=== PATIENT | female | born 1990 | race Caucasian/White ===

== ENCOUNTER 2019-02-28 10:32 | Inpatient (IN) ==
[2019-02-28 10:38] VITALS: BMI 61.0
[2019-02-28] MEDS ORDERED: CATAPRES TAB 0.2 MG PO ONE (11:21)
--- NOTE | 2019-02-28 11:21 | DR.CP ---
HPI Time Seen Time Seen by Provider: 02/28/19 10:50 PCP Primary Care Physician: BRIDGER SHAFER Complaint Chief Complaint:: PT. C/O CHEST PAIN, HIGH BLOOD PRESSURE, NECK AND BACK PAIN, FATIGUE, HEADACHE AND SOB. ONSET OF THURSDAY. 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 Past Surgical History Comment: TUBAL LIGATION Family History History of Family Medical Conditions: Yes Family Medical History: Diabetes Mellitus and Coronary Artery Disease Social History Does patient currently use any type of tobacco product: No Have you used tobacco products in the last 12 months: No Type of Tobacco Use: None Does any household member use tobacco: No Alcohol Use: None Do you use any recreational Drugs:: No Lives With: Spouse Lives Where: Home infectious screening In the last 2 months have you had wt loss of >10#?: NO Have you had fever, night sweats or hemotysis?: No Have you traveled outside the country in the last 6 months?: No Isolation: Standard ROS Review of Systems Constitutional: No Symptoms Reported Eyes: No Symptoms Reported ENTM: No Symptoms Reported Respiratoy: No Symptoms Reported Cardiovascular: No Symptoms Reported Gastrointestinal/Abdominal: No Symptoms Reported Genitourinary: No Symptoms Reported Neurological: No Symptoms Reported Musculoskeletal: No Symptoms Reported Integumentary: No Symptoms Reported Hematologic/Lymphatic: No Symptoms Reported Endocrine: No Symptoms Reported Psychiatric: No Symptoms Reported All Other Systems: Reviewed and Negative PE Vitals Vitals: Temperature 97.9 F Pulse Rate [Apical] 100 Pulse Rate 87 Respiratory Rate 26 Blood Pressure [Left Arm] 219/122 Blood Pressure 212/92 O2 Sat by Pulse Oximetry 96 General Limitations: No Limitations General Appearance: Alert and In No Apparent Distress Head Head Exam: Normal Inspection Eyes Eye exam: Normal Appearance ENT ENT Exam: Normal Exam Chest Chest Inspection: Normal Inspection Respiratory Respiratory Exam: Normal Lung Sounds Bilat Cardiovascular Cardiovascular Exam: Regular Rate and Normal Rhythm Pulse: Normal Edema: Normal Abdominal Exam Abdominal Exam: Normal Inspection, Normal Bowel Sounds and Soft Extremities Extremities Exam: Normal Inspection Back Back Exam: Normal Inspection Neurologic Neurological Exam: Alert and Oriented X3 Psychiatric Psychiatric Exam: Normal Affect and Normal Mood Skin Skin Exam: Warm, Dry, Intact and Normal Color ROR Labs Reviewed Laboratory Results Reviewed?: Yes Result Diagrams: 03/01/19 04:00 03/01/19 04:00 Laboratory: WBC 12.5 X10^3/uL (3.6-10.0) H 02/28/19 11:32 RBC 4.63 X10^6/uL (3.5-5.4) 02/28/19 11:32 Hgb 9.9 g/dL (12.0-16.0) L 02/28/19 11:32 Hct 32.1 % (36.0-47.0) L 02/28/19 11:32 MCV 69.3 fL (80.0-100.0) L 02/28/19 11:32 MCH 21.3 pg (27.0-34.0) L 02/28/19 11:32 MCHC 30.8 g/dL (33.0-35.0) L 02/28/19 11:32 RDW 19.2 % (11.6-16.5) H 02/28/19 11:32 Plt Count 385 X10^3/uL (150.0-450.0) 02/28/19 11:32 Plt Count Comment Adequate (ADEQUATE) 02/28/19 11:32 MPV 7.5 fL (7.4-11.0) 02/28/19 11:32 Neut % (Auto) 74.0 % (42.0-75.0) 02/28/19 11:32 Lymph % (Auto) 19.0 % (21.0-51.0) L 02/28/19 11:32 [place] % (Auto) 4.1 % (0.0-13.0) 02/28/19 11:32 Eos % (Auto) 2.1 % (0.9-2.9) 02/28/19 11:32 Baso % (Auto) 0.8 % (0.2-1.0) 02/28/19 11:32 Neut # (Auto) 9.2 x10^3/uL (2.2-4.8) H 02/28/19 11:32 Lymph # (Auto) 2.4 X10^3/uL (1.3-2.9) 02/28/19 11:32 [place] # (Auto) 0.5 x10^3/uL (0.3-0.8) 02/28/19 11:32 Eos # (Auto) 0.3 x10^3/uL (0.0-0.2) H 02/28/19 11:32 Baso # (Auto) 0.1 X10^3/uL (0.0-0.1) 02/28/19 11:32 Absolute Nucleated RBC 0.0 /100WBC 02/28/19 11:32 Plt Morphology Comment Normal (NORMAL) 02/28/19 11:32 RBC Morphology Abnormal (NORMAL) A 02/28/19 11:32 Hypochromasia 2+ A 02/28/19 11:32 Microcytosis 1+ A 02/28/19 11:32 D-Dimer 175 ng/mL (0-400) 02/28/19 11:32 Sodium 140 mmol/L (136-145) 02/28/19 11:32 Corrected Sodium TNP 02/28/19 11:32 Potassium 4.1 mmol/L (3.5-5.1) 02/28/19 11:32 Chloride 103 mmol/L (98-107) 02/28/19 11:32 Carbon Dioxide 29.8 mmol/L (21-32) 02/28/19 11:32 BUN 9 mg/dL (7-18) 02/28/19 11:32 Creatinine 0.95 mg/dL (0.55-1.02) 02/28/19 11:32 Est GFR (MDRD) Af Amer > 60 (>60) 02/28/19 11:32 Est GFR (MDRD) Non-Af > 60 (>60) 02/28/19 11:32 Glucose 87 mg/dL (65-99) 02/28/19 11:32 Calcium 8.7 mg/dL (8.5-10.1) 02/28/19 11:32 Corrected Calcium 9.6 mg/dL (8.5-10.1) 02/28/19 11:32 Total Bilirubin 0.30 mg/dL (0.2-1.0) 02/28/19 11:32 AST 13 Units/L (15-37) L 02/28/19 11:32 ALT 21 Units/L (12-78) 02/28/19 11:32 Alkaline Phosphatase 90 Units/L (46-116) 02/28/19 11:32 Creatine Kinase 40 Units/L (26-192) 02/28/19 13:55 CK-MB (CK-2) 1.0 ng/mL (0-4.0) 02/28/19 13:55 CK/CKMB % Calc 2.5 % (<4) 02/28/19 13:55 Troponin I 0.06 ng/mL (0-1.5) 02/28/19 13:55 B-Natriuretic Peptide 37.4 pg/mL (0-79) 02/28/19 11:32 Total Protein 7.1 g/dL (6.4-8.2) 02/28/19 11:32 Albumin 2.9 g/dL (3.4-5.0) L 02/28/19 11:32 Globulin 4.2 g/dL (2.5-4.5) 02/28/19 11:32 Albumin/Globulin Ratio 0.7 Ratio (1.1-2.1) L 02/28/19 11:32 Specimen Type Clean catch urine 02/28/19 14:01 Urine Color Yellow (YELLOW) 02/28/19 14:01 Urine Appearance Clear (CLEAR) 02/28/19 14:01 Urine pH 6.0 (5.0 - 8.0) 02/28/19 14:01 Ur Specific [place] 1.015 (1.000-1.030) 02/28/19 14:01 Urine Protein 1+ (NEGATIVE) 02/28/19 14:01 Urine Glucose (UA) Negative (NEGATIVE) 02/28/19 14:01 Urine Ketones Negative (NEGATIVE) 02/28/19 14:01 Urine Occult Blood Negative (NEGATIVE) 02/28/19 14:01 Urine Nitrite Negative (NEGATIVE) 02/28/19 14:01 Urine Bilirubin Negative (NEGATIVE) 02/28/19 14:01 Urine Urobilinogen Normal (NORMAL) 02/28/19 14:01 Ur Leukocyte Esterase Negative (NEGATIVE) 02/28/19 14:01 Urine RBC 3-5 /HPF (0-3) A 02/28/19 14:01 Urine WBC None seen /HPF (0-5) 02/28/19 14:01 Ur Squamous Epith Cells Many /HPF (NEGATIVE) 02/28/19 14:01 Amorphous Sediment Trace /HPF (NEGATIVE) 02/28/19 14:01 Urine Bacteria Trace /HPF (NEGATIVE) 02/28/19 14:01 Ur Culture Indicated? No/not indicated 02/28/19 14:01 Opioid Opioid Risk Tool Age (Adam box if 16-45): Yes History of Preadolescent Sexual Abuse: No Total: 1 Total Score Risk Category: Low Risk Copyright: Grover REYES predicting aberrant behaviors Diagnosis Discharge Problem: Hypertensive urgency, Abnormal cardiac enzyme level, Headache Instructions Forms: Excuse From Work Patient Portal
[2019-02-28] MEDS ORDERED: CATAPRES TAB 0.2 MG ONE (11:34)
[2019-02-28 11:44] LABS: BASOPHILS # (AUTO) 0.1 X10^3/uL (0.0-0.1); BASOPHILS % (AUTO) 0.8 % (0.2-1.0); EOSINOPHILS # (AUTO) 0.3 x10^3/uL (0.0-0.2); EOSINOPHILS % (AUTO) 2.1 % (0.9-2.9); HEMATOCRIT 32.1 % (36.0-47.0); HEMOGLOBIN 9.9 g/dL (12.0-16.0); LYMPHOCYTES # (AUTO) 2.4 X10^3/uL (1.3-2.9); MEAN CORPUSCULAR HEMOGLOBIN 21.3 pg (27.0-34.0); MEAN CORPUSCULAR HGB CONC 30.8 g/dL (33.0-35.0); MEAN CORPUSCULAR VOLUME 69.3 fL (80.0-100.0); MEAN PLATELET VOLUME 7.5 fL (7.4-11.0); MONOCYTES # (AUTO) 0.5 x10^3/uL (0.3-0.8); MONOCYTES % (AUTO) 4.1 % (0.0-13.0); NEUTROPHILS # (AUTO) 9.2 x10^3/uL (2.2-4.8); PLATELET COUNT 385 X10^3/uL (150.0-450.0); RED BLOOD COUNT 4.63 X10^6/uL (3.5-5.4); RED CELL DISTRIBUTION WIDTH 19.2 % (11.6-16.5); WHITE BLOOD COUNT 12.5 X10^3/uL (3.6-10.0)
[2019-02-28 12:01] LABS: ALANINE AMINOTRANSFERASE 21 Units/L (12-78); ALBUMIN 2.9 g/dL (3.4-5.0); ALKALINE PHOSPHATASE 90 Units/L (46-116); ASPARTATE AMINO TRANSFERASE 13 Units/L (15-37); BLOOD UREA NITROGEN 9 mg/dL (7-18); CALCIUM 8.7 mg/dL (8.5-10.1); CARBON DIOXIDE 29.8 mmol/L (21-32); CHLORIDE 103 mmol/L (98-107); CKMB % 2.3 % (<4); COR CA(FOR HYPOALB) 9.6 mg/dL (8.5-10.1); CREATINE KINASE 44 Units/L (26-192); CREATININE 0.95 mg/dL (0.55-1.02); SODIUM 140 mmol/L (136-145); TOTAL PROTEIN 7.1 g/dL (6.4-8.2); eGFR NON BLACK RACES > 60 (>60)
[2019-02-28 12:05] LABS: HYPOCHROMASIA 2+; PLATELET MORPHOLOGY COMMENT NORMAL (NORMAL)
[2019-02-28 12:06] LABS: MICROCYTOSIS 1+
[2019-02-28 12:23] LABS: TROPONIN I 0.06 ng/mL (0-1.5)
--- NOTE | 2019-02-28 13:31 | RAD ---
HISTORY: 28-year-old female with chest pain and shortness of breath. Study: Frontal view of the chest. Comparison: Chest radiographs 09/21/2012 Findings: The trachea is midline. The cardiac silhouette is unremarkable. The lungs are clear without focal consolidation, effusion or pneumothorax. Soft tissues are unremarkable. Osseous structures are unremarkable. IMPRESSION: 1. No acute cardiopulmonary disease. Reported By:
[2019-02-28 14:15] LABS: BILIRUBIN,URINE NEGATIVE (NEGATIVE); BLOOD/HEMOGLOBIN,URINE NEGATIVE (NEGATIVE); GLUCOSE, URINE NEGATIVE (NEGATIVE); KETONES,URINE NEGATIVE (NEGATIVE); LEUKOCYTE ESTERASE ,URINE NEGATIVE (NEGATIVE); NITRITES,URINE NEGATIVE (NEGATIVE); PROTEIN,URINE 1+ (NEGATIVE); UROBILINOGEN,URINE NORMAL (NORMAL)
[2019-02-28 14:20] LABS: AMORPHOUS SEDIMENT,UR TRACE /HPF (NEGATIVE); APPEARANCE,URINE CLEAR (CLEAR); BACTERIA,URINE TRACE /HPF (NEGATIVE); COLOR,URINE YELLOW (YELLOW); SQUAMOUS EPITHELIAL CELL,UR MANY /HPF (NEGATIVE)
[2019-02-28 14:21] LABS: CKMB % 2.5 % (<4); TROPONIN I 0.06 ng/mL (0-1.5)
[2019-02-28] MEDS ORDERED: NORMODYNE INJ 100 MG VIAL IVP ONE (15:35)
[2019-02-28] MEDS ORDERED: NORMODYNE INJ 100 MG VIAL 250 MG in NS 250 ML IV 200 ML IV PRN (15:35)
[2019-02-28] MEDS ORDERED: NORMODYNE INJ 100 MG VIAL ONE ×3 (16:08→16:20)
[2019-02-28] MEDS ORDERED: NS 250 ML IV 250 ML IV ONE (16:12)
[2019-02-28] MEDS ORDERED: APRESOLINE INJ 20 MG VIAL IVP ONE (17:56)
[2019-02-28] MEDS ORDERED: NS 100 ML IV 100 ML IV ONE (17:58)
[2019-02-28] MEDS ORDERED: TORADOL 30 MG VIAL IVP PRN (18:43)
[2019-02-28 20:36] LABS: CKMB % 2.7 % (<4); CREATINE KINASE 37 Units/L (26-192); CREATINE KINASE MB < 1.0 ng/mL (0-4.0); TROPONIN I 0.04 ng/mL (0-1.5)
[2019-02-28] MEDS ORDERED: NITROSTAT SL PRN (20:46)
--- NOTE | 2019-02-28 21:08 | DR.H&P ---
H&P History & Physical for Day of: H&P Date: 02/28/19 Chief Complaint Chief Complaint: Chest pain Allergies Allergies Allergy/AdvReac Type Severity Reaction Status Date / Time amoxicillin Allergy Verified 02/28/19 10:39 Penicillins Allergy Verified 02/28/19 10:39 Sulfa (Sulfonamide Allergy Verified 02/28/19 10:39 Antibiotics) [SULFA] History of Present Illness History of Present Illness: Pt is a 28 yo f w/ no significant past medical history presenting w/ chest pain. She reports sx started on Thursday when she was outside and became short of breath on exertion. She reports having to rest but had continued intermittent episodes of chest tightness and substernal pain that would radiate to her back, neck, and down her left arm w/ associated headache and diaphoresis. She reports symptoms occur both while resting and with exertion. She reports not being able to sleep d/t shortness of breath. The patient's aunt visited her and checked her blood pressure at home that was greater than 200 systolic. She advised her to see her pcp who then sent her to the ED. Pt has also been under a lot of stress over the past month d/t her mother dying from an overdose. Denies fever, chills, nausea, vomiting, abdominal pain, diarrhea, constipation, numbness, weakness, edema. 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 Family History Family Medical History: Diabetes Mellitus and Coronary Artery Disease Social History Does patient currently use any type of tobacco product: No Have you used tobacco products in the last 12 months: No Type of Tobacco Use: None Does any household member use tobacco: No Alcohol Use: None Drug Use: None Medications Home Medications: amoxicillin Allergy (Verified 02/28/19 10:39) Penicillins Allergy (Verified 02/28/19 10:39) Sulfa (Sulfonamide Antibiotics) [SULFA] Allergy (Verified 02/28/19 10:39) Labs Result Diagrams: 02/28/19 11:32 02/28/19 11:32 Labs: Laboratory WBC 12.5 X10^3/uL (3.6-10.0) H 02/28/19 11:32 RBC 4.63 X10^6/uL (3.5-5.4) 02/28/19 11:32 Hgb 9.9 g/dL (12.0-16.0) L 02/28/19 11:32 Hct 32.1 % (36.0-47.0) L 02/28/19 11:32 MCV 69.3 fL (80.0-100.0) L 02/28/19 11:32 MCH 21.3 pg (27.0-34.0) L 02/28/19 11:32 MCHC 30.8 g/dL (33.0-35.0) L 02/28/19 11:32 RDW 19.2 % (11.6-16.5) H 02/28/19 11:32 Plt Count 385 X10^3/uL (150.0-450.0) 02/28/19 11:32 Plt Count Comment Adequate (ADEQUATE) 02/28/19 11:32 MPV 7.5 fL (7.4-11.0) 02/28/19 11:32 Neut % (Auto) 74.0 % (42.0-75.0) 02/28/19 11:32 Lymph % (Auto) 19.0 % (21.0-51.0) L 02/28/19 11:32 [place] % (Auto) 4.1 % (0.0-13.0) 02/28/19 11:32 Eos % (Auto) 2.1 % (0.9-2.9) 02/28/19 11:32 Baso % (Auto) 0.8 % (0.2-1.0) 02/28/19 11:32 Neut # (Auto) 9.2 x10^3/uL (2.2-4.8) H 02/28/19 11:32 Lymph # (Auto) 2.4 X10^3/uL (1.3-2.9) 02/28/19 11:32 [place] # (Auto) 0.5 x10^3/uL (0.3-0.8) 02/28/19 11:32 Eos # (Auto) 0.3 x10^3/uL (0.0-0.2) H 02/28/19 11:32 Baso # (Auto) 0.1 X10^3/uL (0.0-0.1) 02/28/19 11:32 Absolute Nucleated RBC 0.0 /100WBC 02/28/19 11:32 Plt Morphology Comment Normal (NORMAL) 02/28/19 11:32 RBC Morphology Abnormal (NORMAL) A 02/28/19 11:32 Hypochromasia 2+ A 02/28/19 11:32 Microcytosis 1+ A 02/28/19 11:32 D-Dimer 175 ng/mL (0-400) 02/28/19 11:32 Sodium 140 mmol/L (136-145) 02/28/19 11:32 Corrected Sodium TNP 02/28/19 11:32 Potassium 4.1 mmol/L (3.5-5.1) 02/28/19 11:32 Chloride 103 mmol/L (98-107) 02/28/19 11:32 Carbon Dioxide 29.8 mmol/L (21-32) 02/28/19 11:32 BUN 9 mg/dL (7-18) 02/28/19 11:32 Creatinine 0.95 mg/dL (0.55-1.02) 02/28/19 11:32 Est GFR (MDRD) Af Amer > 60 (>60) 02/28/19 11:32 Est GFR (MDRD) Non-Af > 60 (>60) 02/28/19 11:32 Glucose 87 mg/dL (65-99) 02/28/19 11:32 Calcium 8.7 mg/dL (8.5-10.1) 02/28/19 11:32 Corrected Calcium 9.6 mg/dL (8.5-10.1) 02/28/19 11:32 Total Bilirubin 0.30 mg/dL (0.2-1.0) 02/28/19 11:32 AST 13 Units/L (15-37) L 02/28/19 11:32 ALT 21 Units/L (12-78) 02/28/19 11:32 Alkaline Phosphatase 90 Units/L (46-116) 02/28/19 11:32 Creatine Kinase 37 Units/L (26-192) 02/28/19 20:07 CK-MB (CK-2) < 1.0 ng/mL (0-4.0) 02/28/19 20:07 CK/CKMB % Calc 2.7 % (<4) 02/28/19 20:07 Troponin I 0.04 ng/mL (0-1.5) 02/28/19 20:07 B-Natriuretic Peptide 37.4 pg/mL (0-79) 02/28/19 11:32 Total Protein 7.1 g/dL (6.4-8.2) 02/28/19 11:32 Albumin 2.9 g/dL (3.4-5.0) L 02/28/19 11:32 Globulin 4.2 g/dL (2.5-4.5) 02/28/19 11:32 Albumin/Globulin Ratio 0.7 Ratio (1.1-2.1) L 02/28/19 11:32 Specimen Type Clean catch urine 02/28/19 14:01 Urine Color Yellow (YELLOW) 02/28/19 14:01 Urine Appearance Clear (CLEAR) 02/28/19 14:01 Urine pH 6.0 (5.0 - 8.0) 02/28/19 14:01 Ur Specific [place] 1.015 (1.000-1.030) 02/28/19 14:01 Urine Protein 1+ (NEGATIVE) 02/28/19 14:01 Urine Glucose (UA) Negative (NEGATIVE) 02/28/19 14:01 Urine Ketones Negative (NEGATIVE) 02/28/19 14:01 Urine Occult Blood Negative (NEGATIVE) 02/28/19 14:01 Urine Nitrite Negative (NEGATIVE) 02/28/19 14:01 Urine Bilirubin Negative (NEGATIVE) 02/28/19 14:01 Urine Urobilinogen Normal (NORMAL) 02/28/19 14:01 Ur Leukocyte Esterase Negative (NEGATIVE) 02/28/19 14:01 Urine RBC 3-5 /HPF (0-3) A 02/28/19 14:01 Urine WBC None seen /HPF (0-5) 02/28/19 14:01 Ur Squamous Epith Cells Many /HPF (NEGATIVE) 02/28/19 14:01 Amorphous Sediment Trace /HPF (NEGATIVE) 02/28/19 14:01 Urine Bacteria Trace /HPF (NEGATIVE) 02/28/19 14:01 Ur Culture Indicated? No/not indicated 02/28/19 14:01 Review of Systems Constitutional: Sweats; denies Fever, Chills and Weakness Eyes: No Symptoms Reported ENT: No Symptoms Reported Respiratory: Cough, Shortness of Breath and SOB with Excertion; denies Wheezing Cardiovascular: Chest Pain and Orthopnea; denies Palpitations and Edema Gastrointestinal: No Symptoms Reported Genitourinary: No Symptoms Reported Musculoskeletal: No Symptoms Reported Skin: No Symptoms Reported Neurological: No Symptoms Reported Physical Exam Vital Signs: Temperature 97.8 F Pulse Rate [Apical] 100 Pulse Rate 90 Respiratory Rate 29 Blood Pressure [Left Arm] 219/122 Blood Pressure 153/90 O2 Sat by Pulse Oximetry 98 Oriented: Normal Eyes: Normal Ear: Normal Nose: Normal Respiratory: Clear Throughout Cardiovascular: Normal : Normal Auscultation: Bowel Sounds: Normal Palpation: Normal Tenderness: Normal Skin: Normal Musculoskeletal: Normal Psychiatric: Normal Mood Description: Calm Speech Pattern: Clear Assessment/Plan (1) Abnormal cardiac enzyme level: Status: Acute Plan: Pt on telemetry. Slightly abnormal Troponin 0.06>0.06>0.04, will trend. Initial Ekg non-specific changes, repeat possible evolving coronary changes, will f/u w/ ekg in AM. Concerning history of symptoms w/ no previous episodes or events in a pt with no prior cardiopulmonary history. BNP, CXR, D- dimer negative, however HEART score 5. Will order CTA of chest to rule out dissection or pulmonary embolus although low probability. May need Echo to evaluate for any wall motion abnormalities. Pt does not regularly follow w/ pcp, differentials of uncontrolled hypertension and social stress as possible etio logy. Unable to rule out unstable angina at this time. Will start heparin infusion, continue to monitor and determine plan of care based on clinical course. (2) Hypertensive urgency: Status: Acute Plan: No pre-existing diagnosis of hypertension. Blood pressure control, received clonidine in ED. IV labetalol prn. Order hypertension labs. Continue to monitor. (3) Anemia: Qualifiers: Anemia type: unspecified type Qualified Code(s): D64.9 - Anemia, unspecified Status: Acute
[2019-02-28] MEDS: ASPIRIN EC 81 MG PO SCH (21:55)
[2019-02-28] MEDS ORDERED: HEPARIN SODIUM IN D5W 25,000 UNITS/500 ML BAG IV PRN (22:37)
--- NOTE | 2019-03-01 00:50 | CT ---
CTA chest Indication: Chest pain Comparison: None Technique: CT images of the chest were obtained with contrast. Automatic exposure control was utilized. MIP images provided. Findings: The upper abdomen is grossly unremarkable. No acute osseous abnormality. Normal heart size, without pericardial thickening or pericardial effusion. No pathologically enlarged intrathoracic lymph nodes are identified. Evaluation of the pulmonary arteries is markedly limited by poor contrast bolus timing and beam hardening artifact related to patient body habitus. Accounting for this, no central pulmonary arterial filling defect is identified. The thoracic aorta is grossly unremarkable for technique. The lungs are clear. No pleural effusion or pneumothorax. The major airways are patent. Impression: Severely limited angiographic study as above, without central pulmonary embolus. No acute cardiopulmonary abnormality. Reported By:
[2019-03-01 02:09] LABS: CKMB % 2.6 % (<4); CREATINE KINASE 39 Units/L (26-192); CREATINE KINASE MB < 1.0 ng/mL (0-4.0); TROPONIN I 0.04 ng/mL (0-1.5)
[2019-03-01] MEDS ORDERED: APRESOLINE INJ 20 MG VIAL ONE (03:11)
[2019-03-01] MEDS ORDERED: HEPARIN SODIUM INJ 5000 UNITS IVP ONE (04:00)
[2019-03-01] MEDS ORDERED: HEPARIN SODIUM INJ 5000 UNITS ONE (04:03)
[2019-03-01 04:22] LABS: BASOPHILS # (AUTO) 0.1 X10^3/uL (0.0-0.1); BASOPHILS % (AUTO) 0.8 % (0.2-1.0); EOSINOPHILS # (AUTO) 0.3 x10^3/uL (0.0-0.2); EOSINOPHILS % (AUTO) 2.7 % (0.9-2.9); HEMATOCRIT 29.8 % (36.0-47.0); HEMOGLOBIN 9.6 g/dL (12.0-16.0); LYMPHOCYTES # (AUTO) 2.6 X10^3/uL (1.3-2.9); LYMPHOCYTES % (AUTO) 21.2 % (21.0-51.0); MEAN CORPUSCULAR HGB CONC 32.2 g/dL (33.0-35.0); MEAN CORPUSCULAR VOLUME 68.1 fL (80.0-100.0); MEAN PLATELET VOLUME 7.2 fL (7.4-11.0); MONOCYTES # (AUTO) 0.6 x10^3/uL (0.3-0.8); MONOCYTES % (AUTO) 4.7 % (0.0-13.0); NEUTROPHILS # (AUTO) 8.7 x10^3/uL (2.2-4.8); NEUTROPHILS % (AUTO) 70.6 % (42.0-75.0); PLATELET COUNT 401 X10^3/uL (150.0-450.0); RED BLOOD COUNT 4.38 X10^6/uL (3.5-5.4); RED CELL DISTRIBUTION WIDTH 18.5 % (11.6-16.5); WHITE BLOOD COUNT 12.4 X10^3/uL (3.6-10.0)
[2019-03-01] MEDS ORDERED: NORMODYNE INJ 100 MG VIAL IVP ONE (04:29)
[2019-03-01] MEDS ORDERED: NORMODYNE INJ 100 MG VIAL ONE (04:32)
[2019-03-01 04:35] LABS: HYPOCHROMASIA 2+; MICROCYTOSIS 1+; PLATELET MORPHOLOGY COMMENT NORMAL (NORMAL)
[2019-03-01 04:41] LABS: ALANINE AMINOTRANSFERASE 17 Units/L (12-78); ALBUMIN 2.8 g/dL (3.4-5.0); ALKALINE PHOSPHATASE 87 Units/L (46-116); ASPARTATE AMINO TRANSFERASE 12 Units/L (15-37); BLOOD UREA NITROGEN 11 mg/dL (7-18); CALCIUM 8.6 mg/dL (8.5-10.1); CARBON DIOXIDE 27.3 mmol/L (21-32); CHLORIDE 102 mmol/L (98-107); COR CA(FOR HYPOALB) 9.6 mg/dL (8.5-10.1); CREATININE 1.02 mg/dL (0.55-1.02); SODIUM 138 mmol/L (136-145); TSH (3RD GENERATION) 4.073 uIU/mL (0.358-3.74); eGFR NON BLACK RACES > 60 (>60)
[2019-03-01 05:05] LABS: IRON 25 ug/dL (50-175)
--- NOTE | 2019-03-01 08:03 | PCM.PROG ---
Progress Note Progress Note for Day of Date of Exam: 03/01/19 Subjective Subjective: Pt is feeling a little better this morning. Chest tightness and shortness of breath have improved with reduction of blood pressure. Discussing with patient her symptoms in detail appears to have shortness of breath on exertion. She also reports that when she saw her pcp 2-3 months ago her blood pressure was normal. No acute events overnight. Past Medical Family Social History Past Med/Fam/Surg Hx: No changes since H&P Allergies: Allergies amoxicillin Allergy (Verified 02/28/19 10:39) Penicillins Allergy (Verified 02/28/19 10:39) Sulfa (Sulfonamide Antibiotics) [SULFA] Allergy (Verified 02/28/19 10:39) Review of Systems ROS: Changes notes (describe) ROS changes noted: see above Vital Signs and I&O's Vital Signs: Temperature 98.6 F Pulse Rate [Apical] 100 Pulse Rate 86 Respiratory Rate 17 Blood Pressure [Left Arm] 219/122 Blood Pressure 175/84 O2 Sat by Pulse Oximetry 97 Intake and Output: Intake & Output 02/26/19 02/27/19 02/28/19 03/01/19 23:59 23:59 23:59 23:59 Intake Total 740 / 740 465 / 465 Balance 740 / 740 465 / 465 Physical Exam Oriented: Normal Eyes: Normal Ear: Normal Nose: Normal Respiratory: Normal Cardiovascular: Normal : Normal Auscultation: Bowel Sounds: Normal Tenderness: Normal Skin: Normal Musculoskeletal: Normal Psychiatric: Normal Mood Description: Calm Speech Pattern: Clear Laboratory and Diagnostics Result Diagrams: 03/01/19 04:00 03/01/19 04:00 Labs: Laboratory WBC 12.4 X10^3/uL (3.6-10.0) H 03/01/19 04:00 RBC 4.38 X10^6/uL (3.5-5.4) 03/01/19 04:00 Hgb 9.6 g/dL (12.0-16.0) L 03/01/19 04:00 Hct 29.8 % (36.0-47.0) L 03/01/19 04:00 MCV 68.1 fL (80.0-100.0) L 03/01/19 04:00 MCH 22.0 pg (27.0-34.0) L 03/01/19 04:00 MCHC 32.2 g/dL (33.0-35.0) L 03/01/19 04:00 RDW 18.5 % (11.6-16.5) H 03/01/19 04:00 Plt Count 401 X10^3/uL (150.0-450.0) 03/01/19 04:00 Plt Count Comment Adequate (ADEQUATE) 03/01/19 04:00 MPV 7.2 fL (7.4-11.0) L 03/01/19 04:00 Neut % (Auto) 70.6 % (42.0-75.0) 03/01/19 04:00 Lymph % (Auto) 21.2 % (21.0-51.0) 03/01/19 04:00 [place] % (Auto) 4.7 % (0.0-13.0) 03/01/19 04:00 Eos % (Auto) 2.7 % (0.9-2.9) 03/01/19 04:00 Baso % (Auto) 0.8 % (0.2-1.0) 03/01/19 04:00 Neut # (Auto) 8.7 x10^3/uL (2.2-4.8) H 03/01/19 04:00 Lymph # (Auto) 2.6 X10^3/uL (1.3-2.9) 03/01/19 04:00 [place] # (Auto) 0.6 x10^3/uL (0.3-0.8) 03/01/19 04:00 Eos # (Auto) 0.3 x10^3/uL (0.0-0.2) H 03/01/19 04:00 Baso # (Auto) 0.1 X10^3/uL (0.0-0.1) 03/01/19 04:00 Absolute Nucleated RBC 0.0 /100WBC 03/01/19 04:00 Plt Morphology Comment Normal (NORMAL) 03/01/19 04:00 RBC Morphology Abnormal (NORMAL) A 03/01/19 04:00 Hypochromasia 2+ A 03/01/19 04:00 Microcytosis 1+ A 03/01/19 04:00 PT 13.7 SECONDS (11.8-14.3) 03/01/19 04:00 INR Target Range - 03/01/19 04:00 INR 1.09 (0.8-1.3) 03/01/19 04:00 APTT 27.4 SECONDS (22.9-36.5) 03/01/19 04:00 PTT Comment - 03/01/19 04:00 D-Dimer 175 ng/mL (0-400) 02/28/19 11:32 Sodium 138 mmol/L (136-145) 03/01/19 04:00 Corrected Sodium TNP 03/01/19 04:00 Potassium 3.5 mmol/L (3.5-5.1) 03/01/19 04:00 Chloride 102 mmol/L (98-107) 03/01/19 04:00 Carbon Dioxide 27.3 mmol/L (21-32) 03/01/19 04:00 BUN 11 mg/dL (7-18) 03/01/19 04:00 Creatinine 1.02 mg/dL (0.55-1.02) 03/01/19 04:00 Est GFR (MDRD) Af Amer > 60 (>60) 03/01/19 04:00 Est GFR (MDRD) Non-Af > 60 (>60) 03/01/19 04:00 Glucose 98 mg/dL (65-99) 03/01/19 04:00 Calcium 8.6 mg/dL (8.5-10.1) 03/01/19 04:00 Corrected Calcium 9.6 mg/dL (8.5-10.1) 03/01/19 04:00 Magnesium 2.0 mg/dL (1.7-2.9) 03/01/19 04:00 Iron 25 ug/dL (50-175) L 03/01/19 04:00 Transferrin 268 mg/dL (202-364) 03/01/19 04:00 Ferritin 51 ng/mL (8-252) 03/01/19 04:00 Total Bilirubin 0.30 mg/dL (0.2-1.0) 03/01/19 04:00 AST 12 Units/L (15-37) L 03/01/19 04:00 ALT 17 Units/L (12-78) 03/01/19 04:00 Alkaline Phosphatase 87 Units/L (46-116) 03/01/19 04:00 Creatine Kinase 39 Units/L (26-192) 03/01/19 01:38 CK-MB (CK-2) < 1.0 ng/mL (0-4.0) 03/01/19 01:38 CK/CKMB % Calc 2.6 % (<4) 03/01/19 01:38 Troponin I 0.04 ng/mL (0-1.5) 03/01/19 01:38 B-Natriuretic Peptide 37.4 pg/mL (0-79) 02/28/19 11:32 Total Protein 7.0 g/dL (6.4-8.2) 03/01/19 04:00 Albumin 2.8 g/dL (3.4-5.0) L 03/01/19 04:00 Globulin 4.2 g/dL (2.5-4.5) 03/01/19 04:00 Albumin/Globulin Ratio 0.7 Ratio (1.1-2.1) L 03/01/19 04:00 Vitamin B12 304 pg/mL (193-986) 03/01/19 04:00 Folate 5.1 ng/mL (>8.6) L 03/01/19 04:00 TSH 3rd Generation 4.073 uIU/mL (0.358-3.74) H 03/01/19 04:00 Specimen Type Clean catch urine 02/28/19 14:01 Urine Color Yellow (YELLOW) 02/28/19 14:01 Urine Appearance Clear (CLEAR) 02/28/19 14:01 Urine pH 6.0 (5.0 - 8.0) 02/28/19 14:01 Ur Specific [place] 1.015 (1.000-1.030) 02/28/19 14:01 Urine Protein 1+ (NEGATIVE) 02/28/19 14:01 Urine Glucose (UA) Negative (NEGATIVE) 02/28/19 14:01 Urine Ketones Negative (NEGATIVE) 02/28/19 14:01 Urine Occult Blood Negative (NEGATIVE) 02/28/19 14:01 Urine Nitrite Negative (NEGATIVE) 02/28/19 14:01 Urine Bilirubin Negative (NEGATIVE) 02/28/19 14:01 Urine Urobilinogen Normal (NORMAL) 02/28/19 14:01 Ur Leukocyte Esterase Negative (NEGATIVE) 02/28/19 14:01 Urine RBC 3-5 /HPF (0-3) A 02/28/19 14:01 Urine WBC None seen /HPF (0-5) 02/28/19 14:01 Ur Squamous Epith Cells Many /HPF (NEGATIVE) 02/28/19 14:01 Amorphous Sediment Trace /HPF (NEGATIVE) 02/28/19 14:01 Urine Bacteria Trace /HPF (NEGATIVE) 02/28/19 14:01 Ur Culture Indicated? No/not indicated 02/28/19 14:01 Radiology Reviewed: Yes EKG Reviewed: Yes Plan (1) Abnormal cardiac enzyme level: Status: Acute Plan: Pt on telemetry. Slightly abnormal Troponin negative x 4. Initial Ekg non-specific changes, repeat possible evolving coronary changes, AM ekg no change from prior. Atypical sx w/ no previous episodes or events in a pt with no prior cardiopulmonary history. BNP, CXR, D-dimer negative, however HEART score 5. CTA chest negative. Echo: Symptoms appear to have improved with management of hypertension. Heparin infusion initially started overnight for concern of unstable angina, will d/c today. Upon further investigation pt reported shortness of breath with exertion. Will need stress test outpt for further evaluation. (2) Hypertensive urgency: Status: Acute Plan: No pre-existing diagnosis of hypertension. Will start Amlodipine 10mg and monitor. (3) Anemia: Status: Acute Qualifiers: Anemia type: unspecified type Qualified Code(s): D64.9 - Anemia, unspecified Plan: Iron and folate deficiency. Will start iron supplements today.
[2019-03-01] MEDS: ASPIRIN EC 81 MG PO SCH (08:44)
[2019-03-01] MEDS ORDERED: NORVASC TAB 10 MG PO SCH (09:00)
[2019-03-01] MEDS: APRESOLINE TAB 25 MG PO SCH ×2 (12:58→21:16)
[2019-03-01] MEDS ORDERED: NIFEDIPINE CAP 10 MG PO SCH (14:10)
[2019-03-01] MEDS ORDERED: ATIVAN TAB 0.5 MG PO ONE (15:00)
[2019-03-01] MEDS: FERROUS GLUCONATE PO SCH (16:48)
[2019-03-01] MEDS: ZESTORETIC 20/25 MG PO SCH (16:48)
[2019-03-01] MEDS ORDERED: TYLENOL 325 MG TAB PO PRN (17:55)
[2019-03-01] MEDS: COREG TAB 6.25 MG PO SCH (21:15)
[2019-03-02 06:18] LABS: BASOPHILS # (AUTO) 0.2 X10^3/uL (0.0-0.1); BASOPHILS % (AUTO) 1.2 % (0.2-1.0); EOSINOPHILS # (AUTO) 0.4 x10^3/uL (0.0-0.2); EOSINOPHILS % (AUTO) 2.5 % (0.9-2.9); HEMATOCRIT 32.4 % (36.0-47.0); HEMOGLOBIN 10.2 g/dL (12.0-16.0); LYMPHOCYTES # (AUTO) 2.3 X10^3/uL (1.3-2.9); LYMPHOCYTES % (AUTO) 16.8 % (21.0-51.0); MEAN CORPUSCULAR HEMOGLOBIN 21.8 pg (27.0-34.0); MEAN CORPUSCULAR HGB CONC 31.6 g/dL (33.0-35.0); MEAN CORPUSCULAR VOLUME 68.9 fL (80.0-100.0); MEAN PLATELET VOLUME 7.3 fL (7.4-11.0); MONOCYTES # (AUTO) 0.6 x10^3/uL (0.3-0.8); NEUTROPHILS # (AUTO) 10.4 x10^3/uL (2.2-4.8); NEUTROPHILS % (AUTO) 75.5 % (42.0-75.0); PLATELET COUNT 469 X10^3/uL (150.0-450.0); RED CELL DISTRIBUTION WIDTH 19.3 % (11.6-16.5); WHITE BLOOD COUNT 13.8 X10^3/uL (3.6-10.0)
[2019-03-02 06:24] LABS: BLOOD UREA NITROGEN 11 mg/dL (7-18); CHLORIDE 101 mmol/L (98-107); COR NA(FOR HYPERGLY) 136 mmol/L (136-145); CREATININE 1.03 mg/dL (0.55-1.02); SODIUM 136 mmol/L (136-145); eGFR NON BLACK RACES > 60 (>60)
[2019-03-02 07:08] LABS: PLATELET MORPHOLOGY COMMENT NORMAL (NORMAL)
[2019-03-02 07:09] LABS: HYPOCHROMASIA 2+; MICROCYTOSIS 1+
[2019-03-02] MEDS: FERROUS GLUCONATE PO SCH ×2 (08:38→17:09)
[2019-03-02] MEDS: COREG TAB 6.25 MG PO SCH (08:38)
[2019-03-02] MEDS: ZESTORETIC 20/25 MG PO SCH (08:38)
[2019-03-02] MEDS: APRESOLINE TAB 25 MG PO SCH (08:38)
[2019-03-02] MEDS: ASPIRIN EC 81 MG PO SCH (08:38)
[2019-03-02] MEDS ORDERED: ATIVAN TAB 0.5 MG PO ONE (13:10)
[2019-03-02] MEDS ORDERED: CATAPRES TAB 0.2 MG PO NR (15:11)
[2019-03-02 17:09] VITALS: BP 166/84
--- NOTE | 2019-03-04 08:22 | W.DIS.FURT ---
Summary of Discharge Discharge Summary of Date Date of Exam: 03/02/19 Admission Date Date of Admission: 02/28/19 Admission Diagnosis Hospital Course: Pt is a 28 yo f w/ no significant past medical history presenting w/ chest pain x3 days and hypertensive urgency. Her sx included shortness of breath on exertion and kenneth pain described as tightness and substernal pain that would radiate to her back, neck, and down her left arm w/ associated headache and diaphoresis. Chest pain workup was done, cardiac enzymes negative, Ekg, CXR, and CTA unremarkable. Echo performed showed severe LVH, but preserved EF, and may be from chronic uncontrolled hypertension. Antihypertension medications were added, there was difficulty initially in managing blood pressure. Pt is morbidly obese and automatic readings of blood pressure was unable to provide an accurate measurement. Blood pressure checked manually provided more accurate readings. Pt was also very anxious during stay and was under alot of family/social stress that would elevate her readings. BP was able to be managed with the combination of: Lisinopril/HCTZ 20/25mg, Coreg 6.25mg BID, Hydralazine 25mg BID, and Clonidine 0.2mg (used prn if BP >160/100). On discharge patient asymptomatic, normal physical exam, and final BP in acceptable range. She is to follow up with her pcp on Thursday for follow up on hypertension. Vital Signs: Vital Signs (72 hours) 03/01/19 09:00 03/01/19 10:00 03/01/19 11:00 Temperature Pulse Rate 100 H 95 H 90 Respiratory Rate 20 22 17 Blood Pressure 181/94 191/110 182/104 O2 Sat by Pulse Oximetry 97 97 94 L 03/01/19 12:00 03/01/19 13:00 03/01/19 14:00 Temperature 98.1 F Pulse Rate 94 H 101 H 105 H Respiratory Rate 16 20 20 Blood Pressure 179/105 199/121 182/104 O2 Sat by Pulse Oximetry 96 98 96 03/01/19 15:00 03/01/19 16:00 03/01/19 17:00 Temperature 98.4 F Pulse Rate 105 H 105 H 105 H Respiratory Rate 20 22 19 Blood Pressure 180/88 154/97 183/80 O2 Sat by Pulse Oximetry 97 98 98 03/01/19 18:00 03/01/19 18:30 03/01/19 19:00 Temperature Pulse Rate 97 H 99 H Respiratory Rate 17 20 18 Blood Pressure 173/71 O2 Sat by Pulse Oximetry 97 99 03/01/19 19:01 03/01/19 19:30 03/01/19 19:31 Temperature Pulse Rate 95 H 97 H Respiratory Rate 17 20 22 Blood Pressure 167/74 156/68 O2 Sat by Pulse Oximetry 99 96 03/01/19 20:00 03/01/19 20:01 03/01/19 20:31 Temperature 99.1 F Pulse Rate 96 H 96 H 93 H Respiratory Rate 16 24 46 H Blood Pressure 152/70 152/78 O2 Sat by Pulse Oximetry 97 98 97 03/01/19 21:00 03/01/19 21:01 03/01/19 21:31 Temperature Pulse Rate 96 H 93 H 88 Respiratory Rate 14 18 21 Blood Pressure 155/72 127/58 O2 Sat by Pulse Oximetry 98 97 96 03/01/19 22:00 03/01/19 22:01 03/01/19 22:10 Temperature Pulse Rate 91 H 91 H Respiratory Rate 16 30 H 22 Blood Pressure 121/59 O2 Sat by Pulse Oximetry 97 96 03/01/19 22:31 03/01/19 22:40 03/01/19 23:00 Temperature Pulse Rate 87 84 Respiratory Rate 21 18 17 Blood Pressure 120/58 O2 Sat by Pulse Oximetry 95 95 03/01/19 23:01 03/01/19 23:31 03/02/19 00:00 Temperature Pulse Rate 88 80 78 Respiratory Rate 36 H 16 22 Blood Pressure 127/57 128/59 O2 Sat by Pulse Oximetry 95 94 L 92 L 03/02/19 00:01 03/02/19 00:31 03/02/19 01:00 Temperature Pulse Rate 80 88 96 H Respiratory Rate 24 27 H Blood Pressure 124/60 125/64 O2 Sat by Pulse Oximetry 94 L 96 03/02/19 01:01 03/02/19 01:31 03/02/19 02:00 Temperature Pulse Rate 94 H 77 88 Respiratory Rate 22 15 Blood Pressure 124/79 134/62 O2 Sat by Pulse Oximetry 98 98 97 03/02/19 02:01 03/02/19 02:30 03/02/19 02:31 Temperature Pulse Rate 76 74 73 Respiratory Rate 15 19 20 Blood Pressure 147/67 134/65 O2 Sat by Pulse Oximetry 95 96 96 03/02/19 03:00 03/02/19 03:01 03/02/19 03:31 Temperature Pulse Rate 75 70 76 Respiratory Rate 21 16 15 Blood Pressure 155/63 153/63 O2 Sat by Pulse Oximetry 96 97 99 03/02/19 04:00 03/02/19 04:01 03/02/19 04:31 Temperature 97.8 F Pulse Rate 71 92 H 72 Respiratory Rate 16 25 H 29 H Blood Pressure 126/68 143/60 O2 Sat by Pulse Oximetry 98 100 98 03/02/19 05:00 03/02/19 05:01 03/02/19 05:31 Temperature Pulse Rate 89 97 H 92 H Respiratory Rate 23 29 H 19 Blood Pressure 136/59 148/65 O2 Sat by Pulse Oximetry 97 97 93 L 03/02/19 06:00 03/02/19 06:01 03/02/19 09:00 Temperature Pulse Rate 79 77 85 Respiratory Rate 24 29 H 17 Blood Pressure 151/70 181/80 O2 Sat by Pulse Oximetry 95 94 L 99 03/02/19 10:00 03/02/19 11:00 03/02/19 12:00 Temperature 98.2 F Pulse Rate 95 H 88 87 Respiratory Rate 17 17 22 Blood Pressure 173/74 169/73 178/81 O2 Sat by Pulse Oximetry 98 98 99 03/02/19 13:00 03/02/19 14:52 03/02/19 16:13 Temperature Pulse Rate Respiratory Rate Blood Pressure 174/90 198/90 207/101 O2 Sat by Pulse Oximetry 03/02/19 16:30 03/02/19 16:35 Temperature Pulse Rate Respiratory Rate Blood Pressure 162/84 166/84 O2 Sat by Pulse Oximetry Labs: Laboratory Last Values WBC 13.8 X10^3/uL (3.6-10.0) H 03/02/19 05:43 RBC 4.70 X10^6/uL (3.5-5.4) 03/02/19 05:43 Hgb 10.2 g/dL (12.0-16.0) L 03/02/19 05:43 Hct 32.4 % (36.0-47.0) L 03/02/19 05:43 MCV 68.9 fL (80.0-100.0) L 03/02/19 05:43 MCH 21.8 pg (27.0-34.0) L 03/02/19 05:43 MCHC 31.6 g/dL (33.0-35.0) L 03/02/19 05:43 RDW 19.3 % (11.6-16.5) H 03/02/19 05:43 Plt Count 469 X10^3/uL (150.0-450.0) H 03/02/19 05:43 Plt Count Comment Increased (ADEQUATE) A 03/02/19 05:43 MPV 7.3 fL (7.4-11.0) L 03/02/19 05:43 Neut % (Auto) 75.5 % (42.0-75.0) H 03/02/19 05:43 Lymph % (Auto) 16.8 % (21.0-51.0) L 03/02/19 05:43 [place] % (Auto) 4.0 % (0.0-13.0) 03/02/19 05:43 Eos % (Auto) 2.5 % (0.9-2.9) 03/02/19 05:43 Baso % (Auto) 1.2 % (0.2-1.0) H 03/02/19 05:43 Neut # (Auto) 10.4 x10^3/uL (2.2-4.8) H 03/02/19 05:43 Lymph # (Auto) 2.3 X10^3/uL (1.3-2.9) 03/02/19 05:43 [place] # (Auto) 0.6 x10^3/uL (0.3-0.8) 03/02/19 05:43 Eos # (Auto) 0.4 x10^3/uL (0.0-0.2) H 03/02/19 05:43 Baso # (Auto) 0.2 X10^3/uL (0.0-0.1) H 03/02/19 05:43 Absolute Nucleated RBC 0.1 /100WBC 03/02/19 05:43 Plt Morphology Comment Normal (NORMAL) 03/02/19 05:43 RBC Morphology Abnormal (NORMAL) A 03/02/19 05:43 Hypochromasia 2+ A 03/02/19 05:43 Microcytosis 1+ A 03/02/19 05:43 PT 13.7 SECONDS (11.8-14.3) 03/01/19 04:00 INR Target Range - 03/01/19 04:00 INR 1.09 (0.8-1.3) 03/01/19 04:00 APTT 25.4 SECONDS (22.9-36.5) 03/01/19 10:35 PTT Comment - 03/01/19 10:35 D-Dimer 175 ng/mL (0-400) 02/28/19 11:32 Sodium 136 mmol/L (136-145) 03/02/19 05:43 Corrected Sodium 136 mmol/L (136-145) 03/02/19 05:43 Potassium 3.9 mmol/L (3.5-5.1) 03/02/19 05:43 Chloride 101 mmol/L (98-107) 03/02/19 05:43 Carbon Dioxide 26.0 mmol/L (21-32) 03/02/19 05:43 BUN 11 mg/dL (7-18) 03/02/19 05:43 Creatinine 1.03 mg/dL (0.55-1.02) H 03/02/19 05:43 Est GFR (MDRD) Af Amer > 60 (>60) 03/02/19 05:43 Est GFR (MDRD) Non-Af > 60 (>60) 03/02/19 05:43 Glucose 118 mg/dL (65-99) H 03/02/19 05:43 Calcium 9.0 mg/dL (8.5-10.1) 03/02/19 05:43 Corrected Calcium 9.6 mg/dL (8.5-10.1) 03/01/19 04:00 Magnesium 2.0 mg/dL (1.7-2.9) 03/01/19 04:00 Iron 25 ug/dL (50-175) L 03/01/19 04:00 Transferrin 268 mg/dL (202-364) 03/01/19 04:00 Ferritin 51 ng/mL (8-252) 03/01/19 04:00 Total Bilirubin 0.30 mg/dL (0.2-1.0) 03/01/19 04:00 AST 12 Units/L (15-37) L 03/01/19 04:00 ALT 17 Units/L (12-78) 03/01/19 04:00 Alkaline Phosphatase 87 Units/L (46-116) 03/01/19 04:00 Creatine Kinase 39 Units/L (26-192) 03/01/19 01:38 CK-MB (CK-2) < 1.0 ng/mL (0-4.0) 03/01/19 01:38 CK/CKMB % Calc 2.6 % (<4) 03/01/19 01:38 Troponin I 0.04 ng/mL (0-1.5) 03/01/19 01:38 B-Natriuretic Peptide 37.4 pg/mL (0-79) 02/28/19 11:32 Total Protein 7.0 g/dL (6.4-8.2) 03/01/19 04:00 Albumin 2.8 g/dL (3.4-5.0) L 03/01/19 04:00 Globulin 4.2 g/dL (2.5-4.5) 03/01/19 04:00 Albumin/Globulin Ratio 0.7 Ratio (1.1-2.1) L 03/01/19 04:00 Vitamin B12 304 pg/mL (193-986) 03/01/19 04:00 Folate 5.1 ng/mL (>8.6) L 03/01/19 04:00 TSH 3rd Generation 4.073 uIU/mL (0.358-3.74) H 03/01/19 04:00 Specimen Type Clean catch urine 02/28/19 14:01 Urine Color Yellow (YELLOW) 02/28/19 14:01 Urine Appearance Clear (CLEAR) 02/28/19 14:01 Urine pH 6.0 (5.0 - 8.0) 02/28/19 14:01 Ur Specific [place] 1.015 (1.000-1.030) 02/28/19 14:01 Urine Protein 1+ (NEGATIVE) 02/28/19 14:01 Urine Glucose (UA) Negative (NEGATIVE) 02/28/19 14:01 Urine Ketones Negative (NEGATIVE) 02/28/19 14:01 Urine Occult Blood Negative (NEGATIVE) 02/28/19 14:01 Urine Nitrite Negative (NEGATIVE) 02/28/19 14:01 Urine Bilirubin Negative (NEGATIVE) 02/28/19 14:01 Urine Urobilinogen Normal (NORMAL) 02/28/19 14:01 Ur Leukocyte Esterase Negative (NEGATIVE) 02/28/19 14:01 Urine RBC 3-5 /HPF (0-3) A 02/28/19 14:01 Urine WBC None seen /HPF (0-5) 02/28/19 14:01 Ur Squamous Epith Cells Many /HPF (NEGATIVE) 02/28/19 14:01 Amorphous Sediment Trace /HPF (NEGATIVE) 02/28/19 14:01 Urine Bacteria Trace /HPF (NEGATIVE) 02/28/19 14:01 Ur Culture Indicated? No/not indicated 02/28/19 14:01 Reason For Visit: HYPERTENSIVE EMERGENCY,CHEST PAIN,HEADACHE Discharge Diagnosis All Active Problems (Updated 03/01/19 @ 08:50 by Leah Wynn) Anemia (Acute) Hypertensive urgency (Acute) Abnormal cardiac enzyme level (Acute) Headache (Acute) Plan of Treatment: Continue with present treatment and follow up plan. Pt is to keep follow up appointment as instructed and take medications as ordered. Discharge Medications Discharge Medications: amoxicillin Allergy (Verified 02/28/19 10:39) Penicillins Allergy (Verified 02/28/19 10:39) Sulfa (Sulfonamide Antibiotics) [SULFA] Allergy (Verified 02/28/19 10:39) New Prescriptions aspirin 81 mg PO DAILY 30 Days #30 tab 03/02/19 [Rx] carvedilol 6.25 mg PO BID 30 Days #60 tab 03/02/19 [Rx] clonidine HCl 0.2 mg PO PRN PRN 30 Days #30 tab 03/02/19 [Rx] ferrous gluconate 324 mg PO BIDWM 30 Days #60 tab 03/02/19 [Rx] hydralazine 25 mg PO BID 30 Days #60 tab 03/02/19 [Rx] lisinopril-hydrochlorothiazide 1 tab PO DAILY 30 Days #30 tab 03/02/19 [Rx]
== END 2019-03-02 17:30 | disposition home or self-care (01) | DRG 305 ==
LOC: ER 10:34 → ICU 16:51
PROVIDERS: ADMIT Family Medicine; ATTEND Family Medicine
CPT/HCPCS: 36415; 71010; 71045; 71275; 80048; 80053; 81001; 82550; 82553; 82607; 82728; 82746; 83540; 83735; 83880; 84443; 84466; 84484; 85025; 85378; 85610; 85730; 93005; 93306; 96365; 96374; 96375; 99285; A4222; J0360; J1644; J1885; J3490; J7050